=== PATIENT | male | born 1955 | race Caucasian/White ===

== ENCOUNTER → 2018-06-29 | Outpatient (REF) | payer OTHER ==
[~2018-06-29] MED LIST: no meds
[2018-06-29 14:24] LABS: PERCENT SATURATION 36.1 % (19.7-50.0)
== END ==
LOC: M LAB REF 13:09
PROVIDERS: ATTEND Internal Medicine Nephrology
DX: D50.9 Iron deficiency anemia, unspecified (principal)

== ENCOUNTER → 2020-01-15 | Outpatient (REF) | payer OTHER ==
[2020-01-15 17:10] LABS: APPEARANCE, URINE CLEAR (CLEAR); BACTERIA, URINE AUTO NEGATIVE (NEGATIVE); BILIRUBIN, URINE AUTO NEGATIVE (NEGATIVE); BLOOD, URINE BLOOD NEGATIVE (NEGATIVE); COLOR, URINE YELLOW (YELLOW); GLUCOSE, URINE (UA) AUTO NEGATIVE (NEGATIVE); KETONE, URINE AUTO NEGATIVE (NEGATIVE); LEUKOCYTE ESTERASE, URINE AUTO NEGATIVE (NEGATIVE); NITRITE, URINE AUTO NEGATIVE (NEGATIVE); PROTEIN, URINE AUTO 1+ mg/dL (NEGATIVE); RBC, URINE AUTO 0 /HPF (0-3); SPECIFIC GRAVITY URINE AUTO 1.012 (1.002-1.035); SQUAMOUS EPITHELIAL CELL UR AU 0 /HPF (0-6); UROBILINOGEN, URINE AUTO 0.2 mg/dL (0.0-2.0); WBC, URINE AUTO 1 /HPF (0-3)
== END ==
LOC: M SMT 16:51
PROVIDERS: ATTEND Urology
DX: N20.0 Calculus of kidney (principal); N28.1 Cyst of kidney, acquired

== ENCOUNTER 2023-07-12 12:11 | Emergency (ER) | payer OTHER ==
[~2023-07-12] VITALS: Ht 162.6 cm; Wt 94.6 kg
[2023-07-12] MEDS ORDERED: FLOM0.4C39 PO (12:17)
[2023-07-12] MEDS ORDERED: AMLO1TAB25 PO (12:17)
[2023-07-12] MEDS ORDERED: FINA5TAB2 PO (12:17)
[2023-07-12] MEDS ORDERED: ELIQ5TAB PO (12:17)
[2023-07-12 14:45] LABS: BASO % 0.3 % (0.0-1.0); EOS # 0.2 10^3/uL (0.0-0.5); EOS % 1.9 % (0.0-3.0); HEMATOCRIT 31.3 % (42.0-52.0); HEMOGLOBIN 10.5 g/dl (13.5-17.5); LYMPH # 1.3 10^3/uL (1.5-5.0); LYMPH % 11.1 % (24.0-44.0); MEAN CORPUSCULAR HEMOGLOBIN 29.8 pg (27.0-33.0); MEAN CORPUSCULAR HGB CONC 33.5 g/dl (32.0-36.5); MEAN CORPUSCULAR VOLUME 88.9 fl (80.0-96.0); MONO # 1.2 10^3/uL (0.0-0.8); MONO % 9.9 % (2.0-8.0); NEUTROPHILS % 76.2 % (36.0-66.0); PLATELET COUNT, AUTOMATED 231 10^3/uL (150-450); RED BLOOD COUNT 3.52 10^6/uL (4.30-6.10); WHITE BLOOD COUNT 11.9 10^3/uL (4.0-10.0)
[2023-07-12 15:20] LABS: ALBUMIN 3.3 G/DL (3.2-5.2); BILIRUBIN,DIRECT 0.1 MG/DL (<0.4); BILIRUBIN,TOTAL 0.3 MG/DL (0.3-1.2); CALCIUM LEVEL 8.6 MG/DL (8.3-10.6); CREATININE FOR GFR 3.97 MG/DL (0.70-1.30); GLOMERULAR FILTRATION RATE 16.2 (>49); POTASSIUM SERUM 4.8 MMOL/L (3.5-5.1); TOTAL PROTEIN 6.2 G/DL (5.7-8.2)
[2023-07-12 16:07] LABS: INR 1.53; PARTIAL THROMBOPLASTIN TIME 46.4 SECONDS (24.8-34.2); PROTHROMBIN TIME 17.9 SECONDS (12.5-14.5)
[2023-07-12 19:10] VITALS: BP 135/73; TEMP 96.5; O2SAT 95
[2023-07-12] MEDS ORDERED: TORS20TA2 PO (19:15)
== END 2023-07-12 19:35 | disposition left against medical advice (07) ==
LOC: M ED 14:40
DX: R06.02 Shortness of breath (principal); F32.A Depression, unspecified; K21.9 Gastro-esophageal reflux disease without esophagitis; I12.9 Hypertensive chronic kidney disease with stage 1 through stage 4 chronic kidney disease, or unspecified chronic kidney disease; I25.2 Old myocardial infarction; Z79.899 Other long term (current) drug therapy; Z53.9 Procedure and treatment not carried out, unspecified reason

== ENCOUNTER 2023-07-25 02:53 | Inpatient (IN) | payer MEDICARE, OTHER, MEDICAID ==
[~2023-07-25] VITALS: Ht 162.6 cm; Wt 94.4 kg
[~2023-07-25 02:53] MED LIST changes: +AMLO1TAB25 PO; +ELIQ5TAB PO; +FINA5TAB2 PO; +FLOM0.4C39 PO; +TORS20TA2 PO
[2023-07-25] MEDS ORDERED: SODI650T PO (03:02)
[2023-07-25 05:51] LABS: BASO % 0.1 % (0.0-1.0); HEMATOCRIT 30.4 % (42.0-52.0); HEMOGLOBIN 10.1 g/dl (13.5-17.5); LYMPH # 0.6 10^3/uL (1.5-5.0); LYMPH % 2.5 % (24.0-44.0); MEAN CORPUSCULAR HEMOGLOBIN 29.3 pg (27.0-33.0); MEAN CORPUSCULAR HGB CONC 33.2 g/dl (32.0-36.5); MEAN CORPUSCULAR VOLUME 88.1 fl (80.0-96.0); MONO # 1.6 10^3/uL (0.0-0.8); NEUTROPHILS # 20.7 10^3/uL (1.5-8.5); PLATELET COUNT, AUTOMATED 174 10^3/uL (150-450); RED BLOOD COUNT 3.45 10^6/uL (4.30-6.10); WHITE BLOOD COUNT 23.3 10^3/uL (4.0-10.0)
[2023-07-25 06:09] LABS: ALBUMIN 3.1 G/DL (3.2-5.2); BILIRUBIN,DIRECT 0.1 MG/DL (<0.4); BILIRUBIN,TOTAL 0.5 MG/DL (0.3-1.2); CALCIUM LEVEL 8.3 MG/DL (8.3-10.6); CREATININE FOR GFR 3.11 MG/DL (0.70-1.30); GLOMERULAR FILTRATION RATE 21.4 (>49); TOTAL PROTEIN 5.7 G/DL (5.7-8.2)
[2023-07-25] MEDS: NS 1,000 ML IV ONE ×2 (06:22→07:10)
[2023-07-25] MEDS: ONDANSETRON 4MG 2ML VIAL IV ONE (06:23)
[2023-07-25] MEDS: cefTRIAXone SOD 1 GM in D5W MINI-BAG PLUS 50 ML IV ONE ×2 (07:10→11:34)
[2023-07-25] MEDS ORDERED: HOME MED LIST COMPLETE! XX SCH (09:05)
[2023-07-25] MEDS ORDERED: ACETAMINOPHEN TAB 650MG DOSE (2X325MG) PO PRN (10:05)
[2023-07-25 12:00] VITALS: BP 140/75; TEMP 98.6; O2SAT 98
[2023-07-25 14:30] VITALS: BP 137/72; TEMP 98.5; O2SAT 98
[2023-07-25 20:22] VITALS: BP 126/72; TEMP 98.2; O2SAT 95
[2023-07-26 05:49] VITALS: BP 127/71; TEMP 97.9; O2SAT 95
[2023-07-26 06:33] LABS: BASO % 0.1 % (0.0-1.0); EOS % 0.2 % (0.0-3.0); HEMATOCRIT 29.9 % (42.0-52.0); HEMOGLOBIN 9.6 g/dl (13.5-17.5); LYMPH # 0.8 10^3/uL (1.5-5.0); LYMPH % 4.8 % (24.0-44.0); MEAN CORPUSCULAR HEMOGLOBIN 29.3 pg (27.0-33.0); MEAN CORPUSCULAR HGB CONC 32.1 g/dl (32.0-36.5); MEAN CORPUSCULAR VOLUME 91.2 fl (80.0-96.0); MONO # 0.9 10^3/uL (0.0-0.8); NEUTROPHILS # 13.8 10^3/uL (1.5-8.5); NEUTROPHILS % 87.9 % (36.0-66.0); PLATELET COUNT, AUTOMATED 152 10^3/uL (150-450); RED BLOOD COUNT 3.28 10^6/uL (4.30-6.10); WHITE BLOOD COUNT 15.7 10^3/uL (4.0-10.0)
[2023-07-26 07:04] LABS: CALCIUM LEVEL 8.7 MG/DL (8.3-10.6); CREATININE FOR GFR 3.5 MG/DL (0.70-1.30); GLOMERULAR FILTRATION RATE 18.7 (>49); POTASSIUM SERUM 4.8 MMOL/L (3.5-5.1)
[2023-07-26 08:00] VITALS: BP 140/95; TEMP 98.6; O2SAT 94
[2023-07-26] MEDS: cefTRIAXone SOD 2 GM in D5W MINI-BAG PLUS 50 ML IV SCH (10:11)
[2023-07-26 14:00] VITALS: BP 121/80; TEMP 98.6; O2SAT 96
[2023-07-26 21:49] VITALS: BP 129/73; TEMP 99; O2SAT 98
[2023-07-27 05:38] VITALS: BP 128/74; TEMP 97.7; O2SAT 97
[2023-07-27 06:43] LABS: BASO % 0.3 % (0.0-1.0); EOS # 0.2 10^3/uL (0.0-0.5); EOS % 1.7 % (0.0-3.0); HEMATOCRIT 29.2 % (42.0-52.0); HEMOGLOBIN 9.4 g/dl (13.5-17.5); LYMPH # 0.7 10^3/uL (1.5-5.0); LYMPH % 7.5 % (24.0-44.0); MEAN CORPUSCULAR HEMOGLOBIN 28.7 pg (27.0-33.0); MEAN CORPUSCULAR HGB CONC 32.2 g/dl (32.0-36.5); MEAN CORPUSCULAR VOLUME 89.3 fl (80.0-96.0); MONO % 11.6 % (2.0-8.0); NEUTROPHILS # 6.9 10^3/uL (1.5-8.5); NEUTROPHILS % 78.6 % (36.0-66.0); PLATELET COUNT, AUTOMATED 160 10^3/uL (150-450); RED BLOOD COUNT 3.27 10^6/uL (4.30-6.10); WHITE BLOOD COUNT 8.8 10^3/uL (4.0-10.0)
[2023-07-27 07:06] LABS: CALCIUM LEVEL 8.5 MG/DL (8.3-10.6); CREATININE FOR GFR 3.6 MG/DL (0.70-1.30); GLOMERULAR FILTRATION RATE 18.1 (>49); POTASSIUM SERUM 4.5 MMOL/L (3.5-5.1)
[2023-07-27] MEDS: NS 1,000 ML IV ONE (08:10)
[2023-07-27] MEDS: APIXABAN 5 MG TAB (ELIQUIS) PO SCH (09:34)
[2023-07-27] MEDS: FINASTERIDE 5MG TAB PO SCH (09:34)
[2023-07-27] MEDS: SODIUM BICARBONATE 325 MG TAB PO SCH (09:34)
[2023-07-27] MEDS: TAMSULOSIN 0.4 MG CAP PO SCH (09:34)
[2023-07-27] MEDS ORDERED: CEFD300CAP PO (11:14)
[2023-07-27] MEDS ORDERED: PROBCAP14 PO (11:14)
[2023-07-27] MEDS: TAMSULOSIN 0.4 MG CAP PO ONE (12:15)
[2023-07-27] MEDS ORDERED: LEVO1TAB38 PO (14:11)
[2023-07-27] MEDS ORDERED: LEVO1TAB39 PO (14:14)
[2023-07-27] MEDS ORDERED: LevoFLOXacin 500 MG TABLET PO ONE (15:00)
[2023-07-28] MEDS ORDERED: TAMSULOSIN 0.4 MG CAP PO SCH (09:00)
== END 2023-07-27 13:50 | disposition home or self-care (01) | DRG 698 ==
LOC: M ED 02:53 → M ED INP 10:02 → ENRESERV 10:52 → M MS5PR 12:00
PROVIDERS: ADMIT Internal Medicine Nephrology; ATTEND Internal Medicine Nephrology
DX: T83.511A Infection and inflammatory reaction due to indwelling urethral catheter, initial encounter (principal); A41.59 Other Gram-negative sepsis; N18.4 Chronic kidney disease, stage 4 (severe); N10 Acute pyelonephritis; I82.502 Chronic embolism and thrombosis of unspecified deep veins of left lower extremity; N28.1 Cyst of kidney, acquired; Y84.6 Urinary catheterization as the cause of abnormal reaction of the patient, or of later complication, without mention of misadventure at the time of the procedure; N40.1 Benign prostatic hyperplasia with lower urinary tract symptoms; R33.9 Retention of urine, unspecified; I12.9 Hypertensive chronic kidney disease with stage 1 through stage 4 chronic kidney disease, or unspecified chronic kidney disease; F32.A Depression, unspecified; Z87.442 Personal history of urinary calculi; Z79.01 Long term (current) use of anticoagulants; Z79.899 Other long term (current) drug therapy; Z96.0 Presence of urogenital implants

== ENCOUNTER → 2023-11-22 | Outpatient (CLI) | payer MEDICARE, OTHER ==
[~2023-11-22] MED LIST changes: +CEFD300CAP PO; +LEVO1TAB38 PO; +LEVO1TAB39 PO; +PROBCAP14 PO; +SODI650T PO
[2023-11-22 15:14] LABS: HEMATOCRIT 34.9 % (42.0-52.0); HEMOGLOBIN 11.5 g/dl (13.5-17.5); MEAN CORPUSCULAR HEMOGLOBIN 28.9 pg (27.0-33.0); MEAN CORPUSCULAR VOLUME 87.7 fl (80.0-96.0); PLATELET COUNT, AUTOMATED 236 10^3/uL (150-450); RED BLOOD COUNT 3.98 10^6/uL (4.30-6.10); WHITE BLOOD COUNT 7.5 10^3/uL (4.0-10.0)
[2023-11-22 15:46] LABS: PERCENT SATURATION 17.5 % (19.7-50.0)
[2023-11-22 15:47] LABS: THYROID STIMULATING HORMONE 3.242 uIU/ML (0.55-4.78)
[2023-11-22 15:48] LABS: FERRITIN 22.1 NG/ML (10.5-307.3)
[2023-11-22 15:49] LABS: FREE T4 0.91 NG/DL (0.89-1.76)
[2023-11-23 12:26] LABS: ERYTHROPOIETIN 12.2 mIU/mL (2.6-18.5)
== END ==
LOC: M PLALAB 13:44
PROVIDERS: ATTEND Internal Medicine Hematology
DX: D64.9 Anemia, unspecified (principal); N18.4 Chronic kidney disease, stage 4 (severe)